=== PATIENT | female | born 1985 | race Two or more races ===

== ENCOUNTER 2016-09-03 10:41 | Emergency (ER) | payer SELFPAY ==
[~2016-09-03] VITALS: Ht 154.9 cm; Wt 99.8 kg
[2016-09-03 11:25] VITALS: BP 122/59
[2016-09-03] MEDS ORDERED: DEXA4TAB PO (11:58)
--- NOTE | 2016-09-03 11:59 | PHYS DOC ---
Past Medical History Past Medical History: No Pertinent History Past Surgical History: Alcohol Use: None Drug Use: None Adult General Chief Complaint Chief Complaint: SORE THROAT HPI HPI Patient is a 30 year old female presents emergency department stating that she woke up today with a sore throat. She states that she looked into her mouth and the thing that hangs down appears to be swollen. She denies any fever, chills or any nausea or vomiting. She states that she feels that this is causing her to have some difficulty with swallowing. Patient is able to talk in full sentences. Patient has no drooling noted. Review of Systems Review of Systems Constitutional: Denies fever or chills [] Eyes: Denies change in visual acuity, redness, or eye pain [] HENT: Denies nasal congestion complaint of sore throat [] Respiratory: Denies cough or shortness of breath [] Cardiovascular: No additional information not addressed in HPI [] GI: Denies abdominal pain, nausea, vomiting, bloody stools or diarrhea [] : Denies dysuria or hematuria [] Musculoskeletal: Denies back pain or joint pain [] Integument: Denies rash or skin lesions [] Neurologic: Denies headache, focal weakness or sensory changes [] Endocrine: Denies polyuria or polydipsia [] Current Medications Current Medications Current Medications Medications (Trade) Dose Ordered Sig/Chandu Start Time Stop Time Status Last Admin Dose Admin Dexamethasone (Decadron) 8 mg 1X ONCE 09/03/16 12:00 09/03/16 12:01 UNV Allergies Allergies Allergies Coded Allergies Type Severity Reaction Last Updated Verified No Known Drug Allergies 02/18/15 No Physical Exam Physical Exam Constitutional: Well developed, well nourished, no acute distress, non-toxic appearance. [] HENT: Normocephalic, atraumatic, bilateral external ears normal, oropharynx moist, no oral exudates, nose normal. Bilateral tympanic membranes appear to be normal. Throat with uvula swelling noted, patient with tonsils that appear to be slightly red with no exudate noted. Eyes: PERRLA, EOMI, conjunctiva normal, no discharge. [] Neck: Normal range of motion, no tenderness, supple, no stridor. [] Cardiovascular:Heart rate regular rhythm, no murmur [] Lungs & Thorax: Bilateral breath sounds clear to auscultation [] Skin: Warm, dry, no erythema, no rash. [] Back: No tenderness Extremities: No tenderness, no cyanosis, no clubbing, ROM intact, no edema. [] Neurologic: Alert and oriented X 3, normal motor function, normal sensory function, no focal deficits noted. [] Psychologic: Affect normal, judgement normal, mood normal. [] Current Patient Data Vital Signs Vital Signs Date Time Temp Pulse Resp B/P (MAP) Pulse Ox O2 Delivery O2 Flow Rate FiO2 09/03/16 11:25 98.3 64 18 122/59 (80) 97 Room Air 98.3 EKG EKG [] Radiology/Procedures Radiology/Procedures [] Course & Med Decision Making Course & Med Decision Making Pertinent Labs and Imaging studies reviewed. (See chart for details) Patient's rapid strep was negative. Patient will be provided with Decadron here in the emergency department. She'll be discharged home with a prescription for Decadron. She was instructed that the culture of her throat will be back in approximately 2-3 days. She'll be notified if the results are positive and be placed on antibiotics. Patient was encouraged drink plenty of fluids such as water Gatorade or propel. Patient was provided with signs and symptoms to return back to emergency department. Patient agrees with discharge instructions treatment regimens and follow-up recommendations. [] Dragon Disclaimer Dragon Disclaimer This electronic medical record was generated, in whole or in part, using a voice recognition dictation system. Departure Departure Impression: Primary Impression: Pharyngitis Disposition: 01 HOME, SELF-CARE Condition: STABLE Referrals: NO PCP (PCP) Patient Instructions: Viral and Bacterial Pharyngitis, [id number] Additional Instructions: Rapid strep was negative. Your culture will be back in approximately 2-3 days. You'll be notified if the results are positive. Medication as prescribed. Tylenol or ibuprofen for pain fever or generalized body aches and discomfort. Drink plenty fluids such as water Gatorade or propel. Follow-up to primary care physician next 3-5 days. Return back to emergency department for signs and symptoms of become worse. Scripts Dexamethasone (DEXAMETHASONE) 4 Mg Tablet 2 TAB PO DAILY, #8 TAB Prov: KEVAN MOY APRN 09/03/16 KEVAN MOY APRN Sep 03, 2016 11:59
[2016-09-03] MEDS ORDERED: DEXAMETHASONE 4 MG TABLET PO ONE (12:00)
[2016-09-03 12:06] LABS: NEGATIVE OBC STREP NEG; POSITIVE OBC STREP POS
== END 2016-09-03 12:02 | disposition home or self-care (01) ==
LOC: ER 10:55
DX: J02.9 Acute pharyngitis, unspecified (principal)
CPT/HCPCS: 87070; 87880; 99283; J8540